=== PATIENT | male | born 1955 | race Caucasian/White ===

== ENCOUNTER 2017-01-20 14:11 | Day surgery (SDC) | payer OTHER ==
[~2017-01-20] VITALS: Ht 166.4 cm; Wt 69.2 kg
[~2017-01-20 14:11] MED LIST: ASPI325T PO; ATOR10 PO; CLON0.5T PO; FISHCAP; LEXA5SOL PO; LOSA50TA PO; POTA99TA12 PO; RANI150 PO; [UNRECOGNIZED DRUG - CODE] XX
[2017-01-20 15:13] VITALS: BP 149/99; PULSE 67; RESP 18; TEMP 99; O2SAT 95
[2017-01-20] MEDS ORDERED: METOPROLOL TARTRATE 25 MG TAB PO PRN (15:15)
[2017-01-20] MEDS ORDERED: SODIUM CHLORID 0.9% 500 ML IV PRN (15:15)
[2017-01-20] MEDS ORDERED: MUPIROCIN 2% OINT 1 APPLIC/GM SYR NASAL SCH (15:15)
[2017-01-20] MEDS ORDERED: INSULIN HUMAN REGULAR 1,000 UNITS/10 ML VIAL SQ PRN (15:15)
[2017-01-20] MEDS ORDERED: NS 1000 ML IV SCH (15:15)
[2017-01-20] MEDS ORDERED: CHLORHEXIDINE GLUCONATE 2 % 1 PACK (2 CLOTHS) TOPICAL PRN (15:15)
[2017-01-20] MEDS ORDERED: POVIDONE IODINE 5% (ANTISEPSIS KIT) 4 APPLICATIONS EACH NARE PRN (15:15)
[2017-01-20] MEDS ORDERED: LACTATED RINGER'S 1000 ML IV PRN (15:15)
[2017-01-20] MEDS ORDERED: CLON0.5T PO (15:21)
[2017-01-20] MEDS ORDERED: FISH1000 PO (15:21)
[2017-01-20] MEDS ORDERED: LOSA100T PO (15:21)
[2017-01-20] MEDS ORDERED: ASPI325T PO (15:21)
[2017-01-20] MEDS ORDERED: POTA99TA4 PO (15:21)
[2017-01-20] MEDS ORDERED: ATOR10TA15 PO (15:21)
[2017-01-20] MEDS ORDERED: ESCI10TA PO (15:21)
[2017-01-20] MEDS ORDERED: RANI150C PO (15:21)
[2017-01-20] MEDS ORDERED: Hold AM Insulin & AM Hypoglycemic medications in diabetic patients PRN (15:30)
[2017-01-20] MEDS ORDERED: LORazepam 1 MG TAB SL SCH (15:30)
[2017-01-20] MEDS ORDERED: NO Heparin, Lovenox, Coumadin at least 12 hours prior to procedure. PRN (15:30)
[2017-01-20] MEDS ORDERED: POVIDONE IODINE 5% (ANTISEPSIS KIT) 4 APPLICATIONS EACH NARE SCH (15:30)
[2017-01-20] MEDS ORDERED: CHLORHEXIDINE GLUCONATE 2 % 1 PACK (2 CLOTHS) TOPICAL SCH (15:30)
[2017-01-20] MEDS ORDERED: PROPOFOL 200 MG/20 ML AMP IV ONE (15:35)
[2017-01-20 15:37] LABS: AUTOMATED NEUTROPHIL # 3.7 TH/MM3 (1.8-7.7); BASOPHIL # 0.1 TH/MM3 (0-0.2); BASOPHIL % 1.4 % (0.0-2.0); EOSINOPHIL # 0.1 TH/MM3 (0-0.4); EOSINOPHIL % 2.3 % (0.0-4.0); HEMATOCRIT 36.5 % (39.0-51.0); HEMO FLAGS DIFF FINAL; LYMPH % 17.9 % (9.0-44.0); MEAN CELL VOLUME 89.1 FL (80.0-100.0); MEAN CORPUSCULAR HEMOGLOBIN 29.2 PG (27.0-34.0); MEAN CORPUSCULAR HGB CONC 32.8 % (32.0-36.0); MONO % 11.3 % (0.0-8.0); NEUT % 67.1 % (16.0-70.0); PLATELET COUNT 256 TH/MM3 (150-450); RED CELL DISTRIBUTION WIDTH 16.9 % (11.6-17.2); WHITE BLOOD COUNT 5.5 TH/MM3 (4.0-11.0)
[2017-01-20] MEDS ORDERED: ISOPROTERENOL HCL 1 MG/5 ML AMP ONE (15:47)
[2017-01-20] MEDS ORDERED: SODIUM CHLOR 0.9% 250 ML INJ 250 ML ONE (15:47)
[2017-01-20 15:49] LABS: APTT (PATIENT) 26.6 SEC (24.3-30.1); INTERNATIONAL NORMALIZED RATIO 0.9 RATIO
[2017-01-20 15:58] LABS: BICARBONATE 26.5 MEQ/L (21.0-32.0); POTASSIUM 4.3 MEQ/L (3.5-5.1)
[2017-01-20] MEDS ORDERED: KETAMINE HCL 500 MG/10 ML VIAL ONE (16:08)
--- NOTE | 2017-01-20 16:47 | CATHPROC ---
[employer] HIS Report Study Information Study Number Admission Scheduled Start Study Start [id number] Jan 20 2017 2:11PM 01/20/2017 Jan 20 2017 3:06PM [place] Service Cardiac Pacer/ICD Admit Source Facility Department Other [facility] [address] - Heat Treat Supervisor Physician and Clinical Staff Initial Laura Key All Source Intelligence Technician Roula Acevedo,MADDIE All Source Intelligence Technician Caroline Ham,HANDICRAFT OR HOBBY SHOP MANAGER TECH2 Other Anesthesia, APPLICATION PACKAGING CONSULTANT Recorder Mara Franks,RN Scrub Elias Morrison,RT(R) Equipment Time Marketing Strategy Analyst Description Size Mfg Part Number Used/Scraped [id number] 15:06 [email or web address] INDUSTRIES PACK, CCL CUSTOM * Used *[id number] 15:06 [email or web address] PACER SPENCER, LIMB * 2530 *[id number] Used [id number] 15:06 [facility] BLANKET,WARM AIR CCL * Used *[id number] 15:39 [employer] CATHETER, JSN, QUAD FR 5 Used *[id number] 15:39 [employer]ICAL CATHETER, JSN, QUAD FR 5 Used *[id number] 15:39 [employer] CATHETER, JSN, QUAD FR 5 Used *[id number] 15:39 [employer] CATHETER, JSN, QUAD FR 5 Used *[id number] 15:06 [employer] MEDICAL ELECTRODE KIT, LUKE X SURFACE * [id number] Used [id number] 15:40 [employer] SHEATH, EPS, FR5 FAST CATH FR 5 Used *[id number] 15:40 [employer] SHEATH, EPS, FR5 FAST CATH FR 5 Used *[id number] 15:40 [employer] SHEATH, EPS, FR5 FAST CATH FR 5 Used *[id number] 15:40 [employer] SHEATH, EPS, FR6 FAST CATH FR [id number] [facility] PAD, ELECTROSURGICAL 15:06 * [id number] *[id number] Used SURGICAL GROUNDING (BLUE) Medication Medication Total Dose (Bolus/Oral) Medication Total Dosage/Unit 1% XYLOCAINE 40 mL Medications (Bolus/Oral) Medication Time Given Dosage/Unit Administered By Reason 1% XYLOCAINE 01/20/2017 4:15:53 PM 20 mL Laura Hall 20 mL 1% XYLOCAINE given in lab by Laura Hall in Right Groin via Subcutaneous. 1% XYLOCAINE 01/20/2017 4:17:51 PM 20 mL Laura Hall 20 mL 1% XYLOCAINE given in lab by Laura Hall in Right Groin via Subcutaneous. Medication (Drip) Medication Time Given Dosage/Unit Concentration/Unit Diluent (ml) Solution ISUPREL 01/20/2017 4:27:25 PM 4 mcg/min 1 mg 250 NaCl .9 4 mcg/min ISUPREL given in lab by Laura Hall via Peripheral IV. Pump/Drip Flow = 60 ml/hr using Na Cl .9 with a concentration of 1 mg in 250 ml. Final Case Assessment Cardiovascular HR Rhythm NIBP Chest Pain [address] 119/79 0 Edema Present Skin color Skin None Normal Warm Dry Circulatory - Right Pulses Dorsalis Pedis 1 Scale (0,1,2,3,4,d) Circulatory - Left Pulses Dorsalis Pedis 1 Scale (0,1,2,3,4,d) Neurological State Oriented to time-place- Alert Moves all extremities person Respiration - General Respiration Rate SpO2 (%) O2 (lpm) (B/min) 18 98 2 Chronological Log Time Study Chronological Log 15:35:21 Patient arrived via Bed. 15:39:27 Patient Name, D.O.B, / Armband Verified By R.N. 15:39:28 Consent signed by the physician and the patient and verified by the Heat Treat Supervisor staff. 15:39:29 Pre-op and post- op instructions given; patient acknowledges understanding of instructions. 15:39:30 Verbal Stimulation=2 Physical Stimulation=2 Airway=2 Respiration=2 TOTAL=8. (0=absent, 1=li mited, 2=present) 15:39:41 Anesthesia at bedside. Assumes care of patient. 15:39:43 Presedation assessment performed by Heat Treat Supervisor RN. 15:39:45 Patient has been NPO for More than 6Hrs. 15:39:47 Skin Breakdown/none per patient 15:57:24 Reference ECG taken Time Out. Correct patient, procedure, procedure equipment, site and side verified with physicia n present. Time 16:14:00 concurred by MD, individual staff and APPLICATION PACKAGING CONSULTANT. Time Out #2 - Consents verified, patient in correct position, all results are labled and displa yed, safety precautions 16:14:55 taken, antibiotics administered. Time out concurred by MD, individual staff and APPLICATION PACKAGING CONSULTANT in procedu re 16:14:59 Case Start 16:15:53 20 mL 1% XYLOCAINE given in lab by Laura Hall in Right Groin via Subcutaneous. 16:17:02 Vascular access was obtained in the Fem Vein (left). 16:17:15 Vascular access was obtained in the Fem Vein (left). 16:17:16 Vascular access was obtained in the Fem Vein (left). 16:17:20 A SHEATH, EPS, FR5 FAST CATH FR 5 was advanced into the Fem Vein (left) using the Modified Seldinger technique. 16:17:37 A SHEATH, EPS, FR5 FAST CATH FR 5 was advanced into the Fem Vein (left) using the Modified Seldinger technique. 16:17:44 A SHEATH, EPS, FR5 FAST CATH FR 5 was advanced into the Fem Vein (left) using the Modified Seldinger technique. 16:17:51 20 mL 1% XYLOCAINE given in lab by Laura Hall in Right Groin via Subcutaneous. 16:17:57 Vascular access was obtained in the Fem Vein (right). 16:18:00 A SHEATH, EPS, FR6 FAST CATH FR 6 was advanced into the Fem Vein (right) using the Modified Seldinger technique. A CATHETER, JSN, QUAD FR 5 was advanced vis Fem Vein (right) and placed in the CS. Placement wa s visually 16:18:50 confirmed under fluoroscopy. A CATHETER, JSN, QUAD FR 5 was advanced vis Fem Vein (left) and placed in the HIS. Placement wa s visually 16:19:34 confirmed under fluoroscopy. A CATHETER, JSN, QUAD FR 5 was advanced vis Fem Vein (left) and placed in the HRA. Placement wa s visually 16:19:44 confirmed under fluoroscopy. A CATHETER, JSN, QUAD FR 5 was advanced vis Fem Vein (left) and placed in the RVA. Placement wa s visually 16:25:14 confirmed under fluoroscopy. 16:25:31 EP STUDY IN PROGRESS 4 mcg/min ISUPREL given in lab by Laura Hall via Peripheral IV. Pump/Drip Flow = 60 ml/hr us ing NaCl .9 with a 16:27:25 concentration of 1 mg in 250 ml. 16:39:53 Catheter(s) removed without difficulty 16:39:56 Sheath(s) left in place, will be removed in Holding Area 16:39:58 Case End Assessment: Final Case, RH=078 BPM, Rhythm=ST, KRYH=157/79 mmhg, Chest Pain=0, Edema=None, Marana r=Normal, Skin = Warm, Dry Right Pulses: Robel Ped=1 16:40:05 Left Pulses: Robel Ped=1 Neurological: State=Alert, Ox3, TRAORE Respiration: Resp=18 B/min, SpO2=98 %, O2=2 lpm 16:41:30 No case complications noted. 16:41:44 Cine recording checked. 16:41:45 Bedside Report will be given. 16:41:49 DOCU called. Spoke to M[place] 16:42:05 Defibrillator and ground pads removed. Skin intact. 16:46:07 Patient moved to stretcher End Study - Contrast Media Used In Study Contrast Total Opened (mL) Total Used (mL) Total Wasted (mL) Unspecified 0 0 0 End Study - Radiation Exposure Fluoro Time (minutes) 1.3 End Study - Patient Disposition Complications Transferred To Interventional Outcome No Telemetry Bed successful
[2017-01-20] MEDS ORDERED: MIDAZOLAM HCL 2 MG/2 ML VIAL ONE (16:53)
[2017-01-20] MEDS ORDERED: TYLETAB34 PO (16:54)
[2017-01-20] MEDS ORDERED: ATROPINE SULFATE 1 MG/ML VIAL IV PRN (17:00)
[2017-01-20] MEDS ORDERED: oxyCODONE/ACETAMINOPHEN 5 MG/325 MG TAB PO PRN (17:00)
[2017-01-20] MEDS ORDERED: METOCLOPRAMIDE HCL 10 MG/2 ML VIAL IV PRN (17:00)
[2017-01-20] MEDS ORDERED: ONDANSETRON HCL 4 MG/2 ML VIAL IV PRN (17:00)
[2017-01-20] MEDS ORDERED: LIDOCAINE HCL 1% 50 ML VIAL INFIL PRN (17:00)
[2017-01-20] MEDS ORDERED: SODIUM CHLOR 0.9% 250 ML INJ 250 ML IV PRN (17:00)
[2017-01-20] MEDS ORDERED: BACITRACIN OINT 0.9 GM PKT TOP ONE (17:00)
[2017-01-20] MEDS ORDERED: LORazepam 2 MG/ML VIAL IV PRN (17:00)
--- NOTE | 2017-01-20 21:22 | MA ---
cc: ALEXIS MULLINS M.D. DATE 01/20/2017 PROCEDURE Electrophysiology study, coronary sinus cannulation and repeat electrophysiology study on Isuprel infusion. HISTORY Mr. Aburto is a 61-year-old gentleman with a history of tachy arrhythmia, near syncope, previous loop recorder inserted, referred for electrophysiology study and possible ablation. The risks, the nature and the benefits of the procedure were clearly stated to him. The risks include pneumothorax, cardiac perforation, stroke, need for open heart surgery and even . The patient understood and agreed to proceed. PROCEDURE NOTE After written informed consent was obtained, the patient was brought to the EP lab where he was prepped and draped in the usual sterile fashion. Conscious sedation was initiated and maintained throughout the procedure by anesthesiologist. Once sedation was verified, the left inguinal area was anesthetized with 2% Xylocaine. Using modified Seldinger technique, the left femoral vein was cannulated on three occasions and three guidewires were advanced. Over the wires three 5 Somali Hemaquet were advanced. Then the right femoral vein was cannulated on one occasion and one guidewire was advanced. Over the wire a 6 Somali Hemaquet was advanced. Then under fluoroscopy guidance through the 5 and 6 Somali Hemaquets four 5 Somali Vini curved quadripolar electrophysiology catheters were advanced and placed on the His, upper right atrium, coronary sinus and right ventricular apex. Basic interval were measured. They were within normal limits. At this point atrial pacing protocol was performed. Atrial pacing protocol consisted of incremental atrial pacing as well as programmed stimulation with 1400 cycle length and up to one extrastimuli delivered. Then ventricular pacing protocol was performed. There was VA conduction, it was concentric. Ventricular pacing protocol consisted of incremental ventricular pacing as well as programmed stimulation with 1400 cycle and up to one extra stimuli delivered. No tachyarrhythmia was induced. Then I did atrial pacing protocol of the coronary sinus. No tachyarrhythmia was induced. Then Isuprel infusion was initiated at 4 mics. Atrial and ventricular pacing protocol were repeated, again no tachyarrhythmia was induced. Post Isuprel atrial and ventricular pacing protocol were repeated again. No tachyarrhythmia was induced. No echo beat. No jump observed. At that point the procedure was complete. All catheters were removed. The patient going to be transferred to recovery room. No incident to report. The patient tolerated the procedure. Blood loss minimal. IMPRESSION 1. Electrocardiogram: At baseline the patient was in sinus. Post-procedure electrocardiogram was unchanged. 2. Basic Interval: The basic cycle length was around 740. A-H was at 100, and H-V was around 46 milliseconds. 3. Atrial Pacing Protocol: Wenckebach of the AV node at baseline was around 320 milliseconds. On Isuprel it was around 260 milliseconds. ERP of the node was 600, 280 and 500, 200 milliseconds. No tachyarrhythmia was induced. 4. Ventricular Pacing Protocol. There was VA conduction at baseline. On Isuprel no tachyarrhythmia was induced. CONCLUSIONS Negative electrophysiology study for supra and ventricular tachyarrhythmia. COMMENT AND RECOMMENDATION The patient going to be transferred to recovery room. He will be observed. The patient had previous tachyarrhythmia on event and loop recorder. No 3 P wave seen. If the patient has another episode of tachyarrhythmia and very symptomatic, then I will consider pulmonary vein isolation. MD SHUKRI Braun/BRI /5:03 PM /9:01 PM
--- NOTE | 2017-01-21 15:10 | EKG ---
Date Performed: 01/20/2017 Time Performed: 15:14:02 PTAGE: 61 years EKG: Sinus rhythm Inverted T waves in lead III Compared to prior tracing no significant change Normal ECG PREVIOUS TRACING : 10/18/2015 22.59 DOCTOR: Petra Zacarias Interpretating Date/Time 01/21/2017 15:06:25
== END 2017-01-20 19:00 | disposition home or self-care (01) ==
LOC: HDOC 14:11 → HDIC 14:12 → HDOC 19:00
PROVIDERS: ATTEND Internal Medicine Interventional Cardiology
DX: R00.0 Tachycardia, unspecified (principal); R55 Syncope and collapse
CPT/HCPCS: 80048; 85025; 85610; 85730; 93005; 93620; 93623; C1730; C1732; J2250; J3010; J7050

== ENCOUNTER 2017-06-08 20:13 | Emergency (ER) | payer OTHER ==
[~2017-06-08] VITALS: Ht 165.1 cm; Wt 70.0 kg
[~2017-06-08 20:13] MED LIST changes: +ASPI-183 PO; -ASPI325T PO; -ATOR10 PO; +ATOR10TA15 PO; +ESCI10TA PO; +FISH1000 PO; -FISHCAP; -LEXA5SOL PO; +LOSA100T PO; -LOSA50TA PO; -POTA99TA12 PO; +POTA99TA4 PO; -RANI150 PO; +RANI150C PO; +TYLETAB34 PO; -[UNRECOGNIZED DRUG - CODE] XX
[2017-06-08 20:24] VITALS: BP 150/92; PULSE 75; RESP 16; TEMP 97.9; O2SAT 98
[2017-06-08 20:47] VITALS: BP 117/62; PULSE 72; RESP 16; O2SAT 97
[2017-06-08] MEDS ORDERED: ASPI81TA81 PO (20:47)
[2017-06-08 21:25] VITALS: BP_SYST 129; BP_SYST 135; BP_SYST 138; BP_DIAS 77; BP_DIAS 81; RESP 16
--- NOTE | 2017-06-08 21:50 | PD ---
HPI . Syncope Chief Complaint: Syncope/Near-Syncope Time Seen by Provider: 20:55 Travel History International Travel<30 days: No Contact w/Intl Traveler<30days: No Traveled to known affect area: No History of Present Illness HPI This patient presents with chief complaint syncope. He and his state that he has been having episodes of syncope for quite a while now. He has been evaluated by neurology and allergy and the etiology of the syncope has not been found. He does state that he checks his blood pressure and that his blood pressure is consistently low when he has an event. He is on medications for high blood pressure. He does have a prodrome prior to the episodes of syncope. Symptoms are exacerbated by standing. Patient reports 3 negative cardiac catheterizations within the last year. He reports a negative MRI/MRA of his brain. He does not believe that he has had any EP studies done. PFSH Past Medical History Hx Anticoagulant Therapy: Yes (ASPIRIN 81 MG) Cardiac Catheterization: Yes (X 2) Cardiovascular Problems: Yes (CARDIAC CATH X 2, loop recorder, syncope) High Cholesterol: Yes Chest Pain: Yes Diabetes: No Diminished Hearing: No Gastrointestinal Disorders: Yes (GERD) Hypertension: Yes Musculoskeletal: Yes (MULT FX, SKULL FX X 2, RIB FX ) Respiratory: Yes (sleep apena) ?: Not Social History Alcohol Use: Yes (1-2 BEERS DAILY) Tobacco Use: No Substance Use: No Allergies-Medications (Allergen,Severity, Reaction): Coded Allergies: bee venom protein (honey bee) (Verified Allergy, Severe, 06/08/17) Reported Meds & Prescriptions Reported Meds & Active Scripts Active Reported Aspir-81 (Aspirin) 81 Mg Tabdr 2 Tab PO DAILY Ranitidine (Ranitidine HCl) 150 Mg Cap 150 Mg PO DAILY Potassium 99 Mg Tablet 1 Tab PO DAILY Losartan (Losartan Potassium) 100 Mg Tab 100 Mg PO DAILY Fish Oil ([place]-3 Fatty Acids) 1,000 Mg Cap 1 Cap PO DAILY Escitalopram (Escitalopram Oxalate) 10 Mg Tab 10 Mg PO DAILY Clonazepam 0.5 Mg Tab 0.5 Mg PO HS Atorvastatin (Atorvastatin Calcium) 10 Mg Tab 10 Mg PO HS Review of Systems Except as stated in HPI: all other systems reviewed are Neg General / Constitutional: Positive: Other (diaphoresis), No: Fever, Chills Cardiovascular: No: Chest Pain or Discomfort Respiratory: No: Shortness of Breath Neurologic: Positive: Syncope Physical Exam Narrative GENERAL: Awake and alert and in no acute distress. SKIN: warm/dry. HEAD: Normocephalic. Atraumatic. EYES: Pupils equal and round. No scleral icterus. No injection or drainage. ENT: No nasal bleeding or discharge. Mucous membranes pink and moist. NECK: Trachea midline. Full range of motion without pain.. CARDIOVASCULAR: Regular rate and rhythm. Heart sounds normal. RESPIRATORY: No accessory muscle use. Clear to auscultation. Breath sounds equal bilaterally. GASTROINTESTINAL: Abdomen soft. Nontender. Bowel sounds present. Nondistended. MUSCULOSKELETAL: No obvious deformities. NEUROLOGICAL: Awake and alert. No obvious cranial nerve deficits. Motor grossly within normal limits. Normal speech. PSYCHIATRIC: Appropriate mood and affect; insight and judgment normal. Data Data Last Documented VS Vital Signs Date Time Temp Pulse Resp B/P (MAP) Pulse Ox O2 Delivery O2 Flow Rate FiO2 06/08/17 21:25 88 16 129/77 (94) 84 16 138/77 (97) 85 16 135/81 (99) 06/08/17 20:47 97 Room Air 06/08/17 20:24 97.9 Orders Orders Orthostatic Vital Signs (06/08/17 20:55) MDM Medical Decision Making Medical Screen Exam Complete: Yes Emergency Medical Condition: Yes Differential Diagnosis My differential diagnosis of syncope includes but is not limited to cardiac arrhythmia, hypovolemia, anemia, neurological catastrophe, vasovagal response Narrative Course This patient presents following a syncopal event. He has had many previous syncopal events. He is already being evaluated by cardiology and neurology for same. He reports hypotension associated with syncope. His blood pressure here is normal. Orthostatic vital signs are negative. There is nothing more that I can do for this man here in the emergency department. Diagnosis Primary Impression: Syncope Qualified Codes: R55 - Syncope and collapse Patient Instructions: General Instructions, Syncope (DC) Additional Instructions: Consider asking your tombstone setter for an EP study Disposition: 01 DISCHARGE HOME Condition: Stable Dolly Tai MD Jun 08, 2017 21:50
[2017-06-08 22:17] VITALS: BP 137/82
== END 2017-06-08 22:17 | disposition home or self-care (01) ==
LOC: PHED 20:13
DX: R55 Syncope and collapse (principal); E78.00 Pure hypercholesterolemia, unspecified; I10 Essential (primary) hypertension
CPT/HCPCS: 99282